=== PATIENT | female | born 1950 | race Caucasian/White ===

== ENCOUNTER 2017-10-16 06:49 | Day surgery (SDC) | payer MEDICARE, OTHER, SELFPAY ==
--- NOTE | 2017-10-10 13:13 | EKG12_ITS ---
Test Reason : PRE OP Blood Pressure : / mmHG Vent. Rate : 069 BPM Atrial Rate : 069 BPM P-R Int : 160 ms QRS Dur : 078 ms QT Int : 364 ms P-R-T Axes : 062 -21 052 degrees QTc Int : 390 ms Normal sinus rhythm Normal ECG Confirmed by IVY BLANC, EDGAR ([id number]), production editor RICHARD FRITZ ([id number] on 10/11/2017 3:43:46 PM Referred By: Manish Spring Confirmed By:EDGAR HAYNES MD
[2017-10-10 13:55] LABS: Hematocrit 43.1 % (37-47); Hemoglobin 14.5 g/dl (12.0-15.0); Mean Corp Hgb Conc 33.6 g/gl (32-36); Mean Corpuscular Hgb 31.7 pg (27.0-32.0); Mean Corpuscular Volume 94.3 fL (81-99); Mean Platelet Vol. 9.5 fl (6.2-12.0); Platelet Count 368 K/mm3 (150-450); RBC Distribution Width CV 13.7 % (11.6-14.6); RBC Distribution Width SD 45.3 fl (35.1-43.9); Red Blood Count 4.57 M/mm3 (4.2-5.4)
[2017-10-10 13:57] LABS: Partial Thromboplast Time 26.4 Seconds (24.1-36.2)
[2017-10-10 13:58] LABS: Scan Indicated on CBC? Y/N NO
[2017-10-10 14:26] LABS: AST(SGOT) 20 U/L (15-37); Alanine Aminotransfer ALT/SGPT 20 U/L (13-56); Albumin, Serum 3.7 g/dL (3.2-5.0); Alkaline Phosphatase 86 U/L (45-117); Anion Gap 6 (5-15); BUN 15 mg/dL (7-18); BUN/Creat Ratio 18.4 RATIO (10-20); Bilirubin, Direct 0.09 mg/dL (0.00-0.30); Calcium,Total 9.3 mg/dL (8.5-10.1); Chloride 102 mmol/L (98-107); Creatinine, Serum 0.82 mg/dL (0.55-1.02); EST Glomerular Filtration Rate 75 mL/min (>60); Est Glom Filt Rate - Afr Amer 90 mL/min (>60); Globulin 3.9 g/dL (2.2-4.2); Glucose 97 mg/dL (74-106); Potassium 3.8 mmol/L (3.5-5.1); Protein, Total 7.6 g/dL (6.4-8.2); Sodium Level 139 mmol/L (136-145); Thyroid Stim Hormone (TSH) 1.34 uIU/mL (0.358-3.74)
[2017-10-16 07:09] VITALS: BP 118/77; PULSE 74; RESP 16; TEMP 36.6; O2SAT 96; BMI 23.8
--- NOTE | 2017-10-16 08:00 | PCM.OPRPT ---
Report of Operation Date of Procedure: 10/16/17 Pre-Operative Diagnosis: Cystocele Post-Operative Diagnosis: Same Surgery/Procedure Performed:: Anterior Vaginal Repair Description of Surgical Findings:: S/P Hysterectomy. Large cystocele present. Mild rectocele. clerical car checker: Holly Barraza Type of Anesthesia:: General Anesthesiologist: Addy Christiansen Special Medications: none Specimen's removed: Vaginal mucosa Drains: none Estimated Blood Loss (mL): 10cc Fluids Replaced: 600cc Description of Procedure: Elyssa was taken to the OR with IV running. She was given two grams of Cefotetan intravenously for surgical prophylaxis. General anesthesia was then introduced without complication. She was then prepped and draped in the dorsal lithotomy position. A red rubber catheter was used to drain the bladder. A weighted speculum was placed in the posterior vagina. The cystocele was then identified. A Allis clamp was then placed in the midline approximately 1 cm distal to the urethra meatus. A sewcond Allis clamp was placed in the midline at the distal portion of the cystocele. A dilute pitressin solution was the injected into the vaginal mucosa superficially between the clamps. An incision was then made in the vaginal mucosa between the Allis clamps. The underlying vesicovaginal muscularis was then dissected laterally on each side exposing the cystocele. The cystocele was then reduced using a series of mattress sutures of 0-Vicryl suture. The vaginal mucosa was then trimmed and closed with 2-0 Vicryl. All instruments were the removed from the vagina. Hemostasis was adequate. SHe was reversed from anesthesia and taken to the recovery room in stable condition. Sponge, lap, and needle counts were correct. - Complications none - Admit VTE Documentation VTE Present on Admission: No VTE Mechan Device Prophylaxis: SCD's VTE Pharm Prophylaxis ordered?: No
--- NOTE | 2017-10-16 08:28 | PCM.DC ---
You will use the following diet at home:: No restrictions Your food should be the consistency of: Regular Discharge Activity: Return to Normal Activity, May Drive, May not drive while taking narcotic pain medications., May Shower Return to work on:: 11/11/17 May shower in (days): 0 May resume sexual activity in: 6 weeks Call your doctor if your incision/area has: Sudden Increased Bleeding, Increased Pain/ Swelling, Foul Smelling Discharge Call your doctor if you observe: Fever of 101 or Higher, Inability to urinate, Inability to have a bowel movement, Using more than one pad per hour, Shortness of breath, Chest pain, Calf discomfort, Uncontrolled pain Cleanse incision/area with: Soap & Water Allergies/Adverse Reactions: Allergies oxycodone Adverse Reaction (Verified 10/09/17 10:34) HEADACHE HEADACHE Medications to take at Discharge Calcium Carbonate [Calcium] 600 mg PO DAILY 02/24/16 Citalopram [Celexa] 20 mg PO DAILY 02/24/16 Levothyroxine [Synthroid] 25 mcg PO DAILY 02/24/16 Loratadine [Claritin] 10 mg PO DAILY 02/24/16 Lorazepam [Ativan] 1 - 1.5 mg PO TID PRN PRN 02/24/16 Multivitamin [Daily Multiple Vitamin] 1 each PO DAILY 02/24/16 traMADol [Ultram] 50 - 100 mg PO Q6H PRN PRN #90 tablet 05/02/16 Lisinopril/Hydrochlorothiazide [Zestoretic 10/12.5 Tablet] 1 tablet PO DAILY 10/09/17 Hydrocodone Bitart/Apap 5-325 [[place] 5/325] 1 tab PO Q4H PRN PRN 7 Days #20 tab 10/16/17 Ibuprofen [Ibu] 600 mg PO Q6H PRN PRN #20 tab 10/16/17 The following prescriptions were given: Hydrocodone Bitart/Apap 5-325 [[place] 5/325] 1 tab PO Q4H PRN PRN 7 Days #20 tab PRN Reason: Severe Pain (6-10/) Ibuprofen [Ibu] 600 mg PO Q6H PRN PRN #20 tab PRN Reason: mild to moderate pain Primary Care Physician: Gilmer Belcher DO [Primary Care Provider] - Please Follow Up With: Manish Spring MD When: one week Proposed Discharge Date: 10/16/17
--- NOTE | 2017-10-16 08:30 | VAGMU_PTH ---
PATIENT: DYLAN BARRERA LOC: [facility] U#:[id number] AGE/SX: 67/F ROOM: RE10/16/[address]: Dr. Manish Spring MD : 1950 BED: DIS: 10/16/2017 SPEC #: [id number] RECD: 10/16/17 10:09 STATUS: REY ARACELY #: [id number] DANIE: 10/16/17 08:[address]: Manish Spring DEPT: SURGICAL PATHOLOGY RECD BY: Pillo Hillman ENTERED: 10/16/17 10:58 SP TYPE: VAG MUCOSA OTHR DR: Dr. Gilmer Belcher, DO Tissues: Vagina, NOS Procedures: Surgery Specimen Level II HEADER OPERATION: Repair anterior PRE-OP DIAGNOSIS: Cystocele, midline stress incontinence TISSUE SUBMITTED: Vaginal mucosa MICROSCOPIC DIAGNOSIS Vaginal mucosa, anterior repair: Minimal chronic inflammation. No evidence of dysplasia. AM:prieto 10/17/17 MICROSCOPIC DESCRIPTION Slides are reviewed. GROSS DESCRIPTION Received in fixative is one container labeled with the patient's name and designated vaginal mucosa. The specimen consists of two pieces of phillips mucosal tissue that in aggregate measure 5.5 x 4.5 x 0.5 cm. No mucosal lesion is identified. A few instrumentation ortiz are noted. Palliative Care Coordinator sections are submitted in one cassette. / SJ:prieto 10/16/17 TC:5 CPT: 61374
[2017-10-16] MEDS: Vasopressin 20 UNITS/ML Vial (08:39)
[2017-10-16 09:13] VITALS: BP 109/66; BP 118/77; PULSE 75; RESP 18; TEMP 36.3; O2SAT 98
[2017-10-16 09:15] VITALS: BP 104/68; BP 118/77; PULSE 76; RESP 18; O2SAT 96
[2017-10-16 09:30] VITALS: BP 110/73; BP 118/77; PULSE 73; RESP 18; TEMP 36.3; O2SAT 98
[2017-10-16 11:55] VITALS: BP 118/77
== END 2017-10-16 12:00 | disposition home or self-care (01) ==
LOC: SDC 06:50 → AC 06:50
PROVIDERS: Family Provider Preventive Medicine Occupational Medicine; PCP Preventive Medicine Occupational Medicine; Visit Provider Obstetrics & Gynecology
PROC: (CPT 57240; principal; 2017-10-16 08:15)
DX: N81.11 Cystocele, midline (principal); N39.3 Stress incontinence (female) (male); N81.6 Rectocele; Z90.710 Acquired absence of both cervix and uterus; I10 Essential (primary) hypertension; G25.81 Restless legs syndrome; F41.9 Anxiety disorder, unspecified; F32.9 Major depressive disorder, single episode, unspecified; R23.3 Spontaneous ecchymoses
CPT/HCPCS: 00942; 57240; 36415; 80048; 80076; 84443; 85027; 85610; 85730; 86850; 86900; 88302; 88304; J7120; J2405

== ENCOUNTER 2018-01-24 11:54 | Day surgery (SDC) | payer MEDICARE, OTHER, SELFPAY ==
[2018-01-24 12:17] VITALS: BP 130/86; PULSE 86; RESP 12; TEMP 37.1; O2SAT 97; BMI 23.3
--- NOTE | 2018-01-24 12:47 | PCM.OPRPT ---
Problem List (1) Rectovaginal fistula Status: Acute Report of Operation Date of Procedure: 01/24/18 Pre-Operative Diagnosis: rectovaginal fistula Post-Operative Diagnosis: same Surgery/Procedure Performed:: Rectovaginal fistula repair Description of Surgical Findings:: Small pinpoint rectovaginal fistula noted at midvagina staff accountant: Jaimie Titus Type of Anesthesia:: General Special Medications: .5% marcaine with epinephrine Specimen's removed: rectovaginal fistula tract Drains: None Estimated Blood Loss (mL): 15 mL Fluids Replaced: 1500 mL Description of Procedure: The patient was taken to the operating room where general anesthesia was initiated. The patient was placed in dorsal lithotomy position and prepped and draped in sterile fashion. A surgical timeout occurred. A lopez catheter was placed in the patient's bladder. The rectovaginal fistula tract was identified on rectal exam. No other tracts were identified. The tract was pinpoint. The fistula tract/edges of fistula were carefully excised with a 15 blade scalpel and sent to pathology. The rectal mucosa was then approximated with interrupted 4-O vicryl sutures until the entire length of the mucosa was repaired. The subcutaneous tissue was then closed in two layers with 2-O PDS suture on an SH needle. Finally, the skin was reapproximated with a 3-O vicryl running suture. Anesthesia was discontinued. All needle, instrument, and sponge counts were correct x 2. The patient was taken to recovery room in stable condition. Grafts/Implants Used: None - Complications None - Admit VTE Documentation VTE Present on Admission: No VTE Mechan Device Prophylaxis: SCD's VTE Pharm Prophylaxis ordered?: No Reason prophylaxis not ordered:: Treatment Not Indicated
--- NOTE | 2018-01-24 12:51 | PCM.DC.GS ---
Discharge Activity: Return to Normal Activity May shower in (days): 6 May resume sexual activity in: 6 weeks Weight Bearing Status: Full weight bearing Call your doctor if your incision/area has: Continuous Slow Oozing, Sudden Increased Bleeding, Increased Pain/ Swelling, Foul Smelling Discharge Call your doctor if you observe: Fever of 101 or Higher, Coldness, Increased Pain, Numbness or Tingling, Change in Color, Inability to urinate, Inability to have a bowel movement, Using more than one pad per hour, Shortness of breath, Dizziness, Fainting spells, Swelling in the ankles, Chest pain, Prolonged hiccoughing, Increased palpitations (irregular heartbeat), Calf discomfort, Uncontrolled pain Allergies/Adverse Reactions: Allergies oxycodone Adverse Reaction (Verified 01/24/18 12:14) HEADACHE HEADACHE Medications to take at Discharge Calcium Carbonate [Calcium] 600 mg PO DAILY 02/24/16 Citalopram [Celexa] 20 mg PO DAILY 02/24/16 Levothyroxine [Synthroid] 25 mcg PO DAILY 02/24/16 Loratadine [Claritin] 10 mg PO DAILY 02/24/16 Lorazepam [Ativan] 1 - 1.5 mg PO TID PRN PRN 02/24/16 Multivitamin [Daily Multiple Vitamin] 1 each PO DAILY 02/24/16 traMADol [Ultram] 50 - 100 mg PO Q6H PRN PRN #90 tablet 05/02/16 Lisinopril/Hydrochlorothiazide [Zestoretic 10/12.5 Tablet] 1 tablet PO DAILY 10/09/17 Ibuprofen [Ibu] 600 mg PO Q6H PRN PRN #20 tab 10/16/17 Primary Care Physician: Gilmer Belcher DO [Primary Care Provider] - Test Results: Test results from this visit will be discussed in further detail at your follow-up appointment, if applicable. Please Follow Up With: Sherrie Morgan MD Proposed Discharge Date: 01/24/18
--- NOTE | 2018-01-24 13:30 | FIST_PTH ---
PATIENT: DYLAN BARRERA LOC: [facility] U#:[id number] AGE/SX: 67/F ROOM: RE01/24/[address]: Dr. Sherrie Morgan MD : 1950 BED: DIS: 01/24/2018 SPEC #: [id number] RECD: 01/24/18 13:54 STATUS: REY REGagan #: [id number] DANIE: 01/24/18 13:[address]: Sherrie Morgan DEPT: SURGICAL PATHOLOGY RECD BY: Pillo Hillman ENTERED: 01/24/18 14:20 SP TYPE: Fistula OTHR DR: Dr. Gilmer Belcher DO Tissues: Rectum, NOS Procedures: Surgery Specimen Level III HEADER OPERATION: Rectovaginal fistula repair PRE-OP DIAGNOSIS: Rectovaginal fistula TISSUE SUBMITTED: Rectovaginal fistula MICROSCOPIC DIAGNOSIS Rectovaginal fistula: A piece of squamous and colonic mucosa, clinically rectovaginal fistula. SJ:prieto 01/27/18 MICROSCOPIC DESCRIPTION Slides are reviewed. GROSS DESCRIPTION Received in fixative is one container labeled with the patient's name and designated rectovaginal fistula. The specimen consists of an irregular fragment of pink-phillips soft tissue measuring 0.7 x 0.3 x 0.2 cm. The specimen is totally submitted in one cassette. / AM:prieto 01/24/18 TC:5 CPT: 34323
[2018-01-24] MEDS: Bupiv/Epi 0.5% Mpf 30 ML Vial (13:57)
[2018-01-24 14:09] VITALS: BP 103/56; BP 130/86; PULSE 96; RESP 18; TEMP 36.4; O2SAT 100
[2018-01-24 14:15] VITALS: BP 108/68; BP 130/86; PULSE 84; RESP 18; O2SAT 96
[2018-01-24 14:30] VITALS: BP 121/77; BP 130/86; PULSE 82; RESP 18; O2SAT 96
[2018-01-24 14:45] VITALS: BP 124/79; BP 130/86; PULSE 84; RESP 18; TEMP 36.5; O2SAT 98
[2018-01-24 16:02] VITALS: BP 130/86; BP 156/68; PULSE 78; RESP 18; TEMP 36.8; O2SAT 99
== END 2018-01-24 16:03 | disposition home or self-care (01) ==
LOC: SDC 11:54 → AC 11:56
PROVIDERS: Family Provider Preventive Medicine Occupational Medicine; PCP Preventive Medicine Occupational Medicine; Visit Provider Obstetrics & Gynecology
PROC: (CPT 57260; principal; 2018-01-24 13:15)
DX: N82.3 Fistula of vagina to large intestine (principal); R31.9 Hematuria, unspecified; I10 Essential (primary) hypertension; F32.9 Major depressive disorder, single episode, unspecified; F41.9 Anxiety disorder, unspecified
CPT/HCPCS: 00902; 57300; 88304; J7120; J2405

== ENCOUNTER → 2019-12-24 17:54 | Outpatient (CLI) | payer MEDICARE, OTHER, SELFPAY | PROVIDERS: PCP Preventive Medicine Occupational Medicine; Referring Provider Student in an Organized Health Care Education/Training Program; Visit Provider Student in an Organized Health Care Education/Training Program | DX: Z20.828 Contact with and (suspected) exposure to other viral communicable diseases (principal) | CPT/HCPCS: 87635; G2023; U0003 ==

== ENCOUNTER → 2024-09-09 | Outpatient (CLI) | payer MEDICARE, OTHER, SELFPAY ==
--- NOTE | 2024-09-09 14:00 | BD_ITS ---
PROCEDURE: DEXA BONE DENSITY STUDY 09/09/2024 REASON FOR EXAM: LOW BACK PAIN F, age 74 y/o . Postmenopausal. TECHNIQUE: DXA scan of the lumbar spine and left hip, using make and model. REFERENCE LINKS: ISCD Adult Positions COMPARISON: None FINDINGS: BMD and T-SCORES Lumbar spine: 0.874 g/cm2, T-Score -1.9 L1 through L4 Left femoral neck: 0.573 g/cm2, T-Score -2.5 Femoral neck comparison data not recommended for monitoring change. Left total hip: 0.646 g/cm2, T-Score -2.4 Right femoral neck: 0.509 g/cm2, T-Score -3.1 Femoral neck comparison data not recommended for monitoring change. Right total hip: 0.625 g/cm2, T-Score -2.6 Fracture Risk Calculation: FRAX (10-year Fracture Risk) Score: FRAX scores should never be reported in a patient with osteoporosis on DEXA or for any patient that is on bone medication. The patient doesmeet the pharmacological treatment recommendations for prevention of osteoporosis BD/Dexa Bone Density Study IMPRESSION: OSTEOPOROSIS. Recommend follow-up as clinically warranted. Reading Location: [place] [id number]
== END | disposition home or self-care (01) ==
LOC: OPBD 13:39
PROVIDERS: PCP Preventive Medicine Occupational Medicine; Referring Provider Student in an Organized Health Care Education/Training Program; Visit Provider Student in an Organized Health Care Education/Training Program
DX: M54.50 Low back pain, unspecified (principal); M81.0 Age-related osteoporosis without current pathological fracture; Z78.0 Asymptomatic menopausal state
CPT/HCPCS: 77080

== ENCOUNTER 2024-09-17 14:30 | Outpatient (RCR) | payer MEDICARE, OTHER, SELFPAY ==
--- NOTE | 2024-09-08 14:58 | HP.PTEVAL_ITS ---
Patient's Visit Information Visit Information Visit Information: DYLAN BARRERA is a 74 year old F referred to Physical Therapy by EVANS Zepeda with a diagnosis of Degeneration of intervertebral disc of lumbar region without of lumbar pain. Date of Evaluation: 09/08/24 Physical Therapist: Calvin Meyer, PT, Cert MDT, OCS Visit Plan Frequency: 2x /Week Duration: 4 Weeks Plan: PT INTERVENTIONS DLS ,POSTURAL EX'S ,FLEXABILITY, LUMBAR FLEXION AND EDUCATION ON APPROPRIATE GYM PROGRAM Subjective Subjective: This 74 y/o female presents to physical therapy with lumbar pain. Patient has had lumbar pain for many years and progressively worse. Patient seen PA did x-rays [id number] endplate degenerative changes and disc disease of T12-L1.and Moderate levoconvex curvature of the lumbar spine, centered around L2. No acute fracture or significant dynamic instability.Patient takes tramadol. scheduled MRI end of month. Pain symmetrical lumbar Aggravating factors standing ,carry something heavy ,leaning over. Alleviating factors sitting. Coughing/sneezing - Bowel/bladder- Patient has no PT . Patient Plans for pain management . Patient workouts at [employer]. Patient to return to DR LILLY. Patient condition affects QOL and function. Patient goals to decrease pain .PMH; BILATERAL TKA SOCIAL: SINGLE VOCATION: retired Pain Bilateral Back: Pain Intensity (Out of 10): 5 Objective Objective: POSTURE: mild forward posture left scoliosis GAIT: reciprocal pattern PALPATION: unremarkable NEURO: denies paresthesia/tingling ,reflexes L3-4 ,L4-5 ,L5- S1 1/3 FLEXABILITY: hamstrings WFL MMT: quads/hams 4/5 ,hip flexion right 4/5 bleft 4-/5 ,ankle 4/5 Special Tests L/S Slump test left side: Negative L/S Slump test right side: Negative L/S Left Straight Leg Raise: Negative L/S Right Straight Leg Raise: Negative Lumbar Standing: Flexion - Mechanical Response: No effect Lumbar Standing: Flexion - Symptoms During Testing: No effect Lumbar Standing: Flexion - Symptoms After Testing: No effect Lumbar Standing: Extension - Mechanical Response: No effect Lumbar Standing: Extension - Symptoms During Testing: Increases Lumbar Standing: Extension - Symptoms After Testing: No worse Lumbar Standing: Right Side Glides - Mechanical Response: No effect Lumbar Standing: Right Side [place] - Symptoms During Testing: No effect Lumbar Standing: Right Side [place] - Symptoms After Testing: No effect Lumbar Standing: Left Side [place] - Mechanical Response: No effect Lumbar Standing: Left Side [place] - Symptoms During Testing: No effect Lumbar Standing: Left Side [place] - Symptoms After Testing: No effect Balance/Special Test Scores Oswestry Low Back Score: 23 Goals Goal 1:: Patient to be I with HEP Goal Time Frame: 4-6 Weeks Goal 2:: Patient to improve lumbar ROM for function of recovery Goal Time Frame: 4-6 Weeks Goal 3:: Patient to improve back oswestry score by 5 points to improve QOL Goal Time Frame: 4-6 Weeks Goal 4:: Patient to demonstrate 50% improvement with less pain and im proved function Goal Time Frame: 4-6 Weeks Rehabilitation Potential Physical Therapy Diagnosis: This patient has DDD and scoliosis with symmetrical lumbar pain worse with positioning and carrying affects housework tasks will benefit from skilled PT Rehabilitation Potential: Good Anticipated Interventions Patient/Client Instruction: Educate patient on: Condition and Plan of Care For the Purpose of:: To decrease pain, To increase ROM, To improve muscle performance and motor function, To improve ability to perform ADL's, To increase tolerance to activity/condition/position, To improve ability of physical actions for home/community/work/leisure, To decrease soft tissue restriction, To increase flexibility/ROM and To improve tolerance to ADL's Therapeutic Exercise to Include: Strength training, Body mechanics, Postural training, Flexibilty training and Dynamic Lumbar Stabilization For the Purpose of:: To decrease pain, To improve nutrient delivery to tissue, To increase oxygenation perfusion, To improve muscle performance and motor function, To increase tolerance to activity/condition/position, To improve performance and independence with ADL's, To improve ability of physical actions for home/community/work/leisure, To improve health of tissue, To decrease soft tissue restriction and To improve tolerance to ADL's Text: Thank you for the opportunity to evaluate your patient. For Medicare and Medicare HMO plans, please review the plan of care and approve it. It will need to be FAXED BACK to us at [phone] for Medicare purposes. For Medicare only, by signing this I certify the plan of care. Please let me know if there are questions or concerns regarding this plan of care. Physician Signature: Date:
--- NOTE | 2024-09-17 15:03 | HP.PTDCSUM ---
Discharge Summary D/C summary: It has been my pleasure to treat DYLAN BARRERA referred by EVANS Zepeda, with the diagnosis of Degeneration of intervertebral disc of lumbar region without of lumbar pain for a total of 2 visit(s). Discharge Date: Please see the following information for a summary of their discharge status. Subjective Subjective: Doing great ,doing all my exercises Pain Bilateral Back: Pain Intensity (Out of 10): 0 Overall Improvement % Improvement: 90 Objective Objective/Function: POSTURE: mild forward posture left scoliosis GAIT: reciprocal pattern PALPATION: unremarkable NEURO: denies paresthesia/tingling ,reflexes L3-4 ,L4-5 ,L5- S1 1/3 FLEXABILITY: hamstrings WFL MMT: quads/hams 4/5 ,hip flexion right 4/5 bleft 4-/5 ,ankle 4/5 Goals Goal 1:: Patient to be I with HEP Goal Progress: Goal Met Goal 2:: Patient to improve lumbar ROM for function of recovery Goal Progress: Goal Met Goal 3:: Patient to improve back oswestry score by 5 points to improve QOL Goal Progress: Goal Met Goal 4:: Patient to demonstrate 50% improvement with less pain and im proved function Goal Progress: Goal Met Plan Plan: D/C D/C Information d/c sentence: If there are questions or concerns regarding this patient's physical therapy, please feel free to call me at [phone]. Thank you for the referral of this patient. Sincerely, Calvin Meyer, PT, Cert MDT, OCS Balance/Gait/Functional tests Balance/Special Test Scores Oswestry Low Back Score: 0 Improvement % Improvement: 90
== END 2024-09-17 19:00 | disposition home or self-care (01) ==
LOC: PT 14:30
PROVIDERS: PCP Preventive Medicine Occupational Medicine; Referring Provider Student in an Organized Health Care Education/Training Program; Visit Provider Student in an Organized Health Care Education/Training Program
DX: M51.369 Other intervertebral disc degeneration, lumbar region without mention of lumbar back pain or lower extremity pain (principal)
CPT/HCPCS: 97110; 97162

== ENCOUNTER → 2024-10-05 | Outpatient (CLI) | payer MEDICARE, OTHER, SELFPAY ==
--- NOTE | 2024-10-05 14:45 | MRI_ITS ---
PROCEDURE: SPINE LUMBAR (ROUTINE) 10/05/2024 REASON FOR EXAM: Scoliosis TECHNIQUE: T1, T2, stir, multiplanar and multisequence images were obtained without IV contrast administration. COMPARISON: August 29, 2024 x-ray FINDINGS: There is dextroscoliosis of the upper lumbar region with Small angle = 29 degrees from T11-L4, apex L2. There is grade 1 retrolisthesis at T12-L1, 0.3 cm. There is grade 1 retrolisthesis at L1-2, 0.3 cm. There is grade 1 spondylolisthesis at L4-5, 0.3 cm. There is grade 1 spondylolisthesis at L5-S1, 0.4 cm. There is a 25% anterior compression deformity at T12 and L1, with chronic features. There is Modic fibrotic type endplate change from T12-L2. Vertebral body marrow signal is otherwise normal. Intervertebral disc signal shows desiccation. The facets are aligned. The L1-L2 level: There is moderate central and right and left paracentral disc and osteophyte protrusion. There is moderate bilateral lateral recess stenosis. There is mild right and moderate left foraminal narrowing secondary to disc protrusion and facet hypertrophy. There is no critical central canal stenosis. The L2-L3 level: There is moderate central and right and left paracentral disc protrusion. There is moderate bilateral lateral recess stenosis. There is mild right and moderate left foraminal narrowing secondary to disc protrusion and facet hypertrophy. There is mild central canal stenosis. The L3-L4 level: There is moderate central and right and left paracentral disc protrusion. There is moderate bilateral lateral recess stenosis. There is moderate right and mild left foraminal narrowing secondary to disc protrusion and facet hypertrophy. There is no critical central canal stenosis. The L4-L5 level: There is disc extrusion which extends beyond the L4 endplate, attached at the margin, measuring 0.5 x 1.1 x 1.6 cm. There is mild right and moderate left lateral recess stenosis. There is mild bilateral foraminal narrowing secondary to disc protrusion and facet hypertrophy. There is moderate central canal stenosis, partly secondary to ligamentous hypertrophy. The L5-S1 level: There is mild central and right and left paracentral disc protrusion. There is mild right and moderate left lateral recess stenosis. There is mild bilateral foraminal narrowing secondary to disc protrusion and facet hypertrophy. There is no central canal stenosis. The visualized conus shows normal signal characteristics. Adjacent soft tissues are unremarkable. MRI/Spine Lumbar (Routine) IMPRESSION: There is dextroscoliosis of the upper lumbar region with Small angle = 29 degree s from T11-L4, apex L2. There is grade 1 retrolisthesis at T12-L1, 0.3 cm. There is grade 1 retrolisth esis at L1-2, 0.3 cm. There is grade 1 spondylolisthesis at L4-5, 0.3 cm. There is grade 1 spondylolisthesis at L5-S1 , 0.4 cm. There is a 25% anterior compression deformity at T12 and L1, with chronic featu res. There is disc extrusion at L4-5. There is mild central canal stenosis at L2-3 and L4-5, with lateral recess and foraminal narrowing. Reading Location: [facility]
== END | disposition home or self-care (01) ==
PROVIDERS: PCP Preventive Medicine Occupational Medicine; Referring Provider Student in an Organized Health Care Education/Training Program; Visit Provider Student in an Organized Health Care Education/Training Program
DX: R52 Pain, unspecified (principal)
CPT/HCPCS: 72148

== ENCOUNTER → 2025-03-05 | Outpatient (CLI) | payer MEDICARE, OTHER, SELFPAY ==
--- NOTE | 2025-03-05 10:43 | RAD_ITS ---
PROCEDURE: KNEE 4 OR MORE VIEWS 03/05/2025 REASON FOR EXAM: PAIN IN KNEE TECHNIQUE: Procedure Code: RADKN Modality: DX Procedure: KNEE 4 OR MORE VIEWS Laterality: Left COMPARISON: None provided. RAD/Knee 4 or More Views IMPRESSION: A very small left knee joint effusion is identified. A left total knee prosthesis is seen, without evidence of loosening or metallic fracture. Satisfactory alignment is noted. No fracture or dislocation is seen. If clinical concern persists, short-term follow-up imaging may be obtained to r ule out a currently occult fracture. Reading Location: [id number]
== END | disposition home or self-care (01) ==
LOC: MTRAD 10:43
PROVIDERS: PCP Preventive Medicine Occupational Medicine
DX: M25.562 Pain in left knee (principal)
CPT/HCPCS: 73564